=== PATIENT | female | born 1945 | race Caucasian/White ===

== ENCOUNTER 2023-05-07 11:58 | Day surgery (SDC) | payer MEDICARE, OTHER ==
[~2023-05-07] VITALS: Ht 175.3 cm; Wt 86.3 kg
[~2023-05-07 11:58] MED LIST: ATOR40TA PO; CARV6.25; CARV6.25 PO; DIGO.25 PO; NAPR500 PO; ONDA4 PO; Percocet 5-3251 EACH PO; RXTRAM50 PO; TRAM50 PO; WARF2.5 PO; WARF5 PO
[2023-05-07] MEDS ORDERED: ANORO ELLIPTA1 EAC1 IH (12:16)
[2023-05-07] MEDS ORDERED: ALBU90OI INH (12:16)
[2023-05-07] MEDS ORDERED: KLOR-CON 1010 ME9 PO (12:17)
[2023-05-07] MEDS ORDERED: METF500 PO (12:17)
[2023-05-07] MEDS ORDERED: TRIA50 PO (12:18)
[2023-05-07] MEDS ORDERED: HYDCHL25 PO (12:18)
[2023-05-07 14:06] VITALS: BP 105/78
== END 2023-05-07 14:00 | disposition home or self-care (01) ==
LOC: ORSCSDS 11:58
PROVIDERS: Internal Medicine Gastroenterology
PROC: 0DJD8ZZ Inspection of Lower Intestinal Tract, Via Natural or Artificial Opening Endoscopic (ICD-10-PCS; principal; 2023-05-07 13:15)
DX: Z12.11 Encounter for screening for malignant neoplasm of colon (principal); K57.30 Diverticulosis of large intestine without perforation or abscess without bleeding; I48.91 Unspecified atrial fibrillation; E11.9 Type 2 diabetes mellitus without complications; J44.9 Chronic obstructive pulmonary disease, unspecified; Z79.84 Long term (current) use of oral hypoglycemic drugs; Z79.01 Long term (current) use of anticoagulants; Z79.899 Other long term (current) drug therapy
CPT/HCPCS: 82947; J2405; J2704; J7120

== ENCOUNTER → 2024-11-11 | Outpatient (CLI) | payer MEDICARE, OTHER ==
[~2024-11-11] MED LIST changes: +ALBU90OI INH; +ANORO ELLIPTA1 EAC1 IH; +HYDCHL25 PO; +KLOR-CON 1010 ME9 PO; +METF500 PO; +TRIA50 PO
[2024-11-11 18:26] LABS: Adenovirus F 40/41 Not Detected (NOT DETECT); Astrovirus Not Detected (NOT DETECT); Campylobacter Sp Not Detected (NOT DETECT); Cryptosporidium Not Detected (NOT DETECT); Cyclospora Cayetanensis Not Detected (NOT DETECT); E. Coli O157 Not Detected (NOT DETECT); Entamoeba Histolytica Not Detected (NOT DETECT); Enteroaggregative E. coli-EAEC Not Detected (NOT DETECT); Enteropathogenic E. coli-EPEC Not Detected (NOT DETECT); Enterotoxigenic E. coli-ETEC Not Detected (NOT DETECT); Giardia Lamblia Not Detected (NOT DETECT); Norovirus GI/GII Not Detected (NOT DETECT); Plesiomonas Shigelloides Not Detected (NOT DETECT); Rotavirus A Not Detected (NOT DETECT); Salmonella Sp Not Detected (NOT DETECT); Sapovirus Not Detected (NOT DETECT); Shiga Toxin-prod E. coli-STEC Not Detected (NOT DETECT); Shigella/Enteroin E. coli-EIEC Not Detected (NOT DETECT); Vibrio Cholerae Not Detected (NOT DETECT); Vibrio Sp Not Detected (NOT DETECT); Yersinia Enterocolitica Not Detected (NOT DETECT)
== END ==
LOC: LAB SHORT 14:08 → LAB 14:08
PROVIDERS: Family Medicine
DX: R19.7 Diarrhea, unspecified (principal)
CPT/HCPCS: 87324; 87507